=== PATIENT | male | born 1945 ===

== ENCOUNTER → 2025-03-10 11:36 | Outpatient (REF) | payer MEDICARE, OTHER, SELFPAY | LOC: DHSLP 11:36 | PROVIDERS: ATTENDING PHYSICIAN Internal Medicine Critical Care Medicine; FAMILY PHYSICIAN Internal Medicine | DX: G47.33 Obstructive sleep apnea (adult) (pediatric) (principal); R06.83 Snoring; I10 Essential (primary) hypertension; C90.00 Multiple myeloma not having achieved remission | CPT/HCPCS: 95800 ==